=== PATIENT | female | born 1955 | race Caucasian/White ===

== ENCOUNTER 2017-01-12 08:59 | Emergency (ER) | payer BC ==
[2017-01-12 09:45] VITALS: BP 138/61
--- NOTE | 2017-01-12 10:28 | UC ---
Throat Pain/Nasal Domenico HPI - HPI Summary HPI Summary: THREE DAYS OF SORE THROAT, SWOLLEN TONSILS. NO FEVER. NO RASH. NO ABDOMINAL PAIN. - History of Current Complaint Chief Complaint: UCGeneralIllness Stated Complaint: SORE THROAT Time Seen by Provider: 01/12/17 09:33 Hx Obtained From: Patient Onset/Duration: Sudden Onset, Lasting Days, Still Present Severity: Mild Cough: Nonproductive Associated Signs & Symptoms: Positive: Hoarseness - Epiglottits Risk Factors Epiglottis Risk Factors: Negative - Allergies/Home Medications Allergies/Adverse Reactions: Allergies Allergy/AdvReac Type Severity Reaction Status Date / Time No Known Allergies Allergy Verified 01/12/17 09:22 Home Medications: Home Medications Escitalopram Oxalate [Lexapro 10 mg] 10 mg PO DAILY 01/12/17 [History Confirmed 01/12/17] PMH/Surg Hx/FS Hx/Imm Hx Previously Healthy: Yes - Surgical History Surgical History: Yes Surgery Procedure, Year, and Place: 2 c-sections - Family History Known Family History: Negative: Respiratory Disease - Social History Occupation: Employed Full-time Lives: With Family Alcohol Use: None Substance Use Type: None Smoking Status (MU): Never Smoked Tobacco Review of Systems Constitutional: Negative Skin: Negative Eyes: Negative ENT: Sore Throat Respiratory: Negative Cardiovascular: Negative Gastrointestinal: Negative Genitourinary: Negative Motor: Negative Neurovascular: Negative Musculoskeletal: Negative Neurological: Negative Psychological: Negative All Other Systems Reviewed And Are Negative: Yes Physical Exam Triage Information Reviewed: Yes Appearance: Well-Appearing, No Pain Distress, Well-Nourished Vital Signs: Initial Vital Signs Temp 97.7 F 01/12/17 09:22 Pulse 60 01/12/17 09:22 Resp 18 01/12/17 09:22 BP 138/61 01/12/17 09:22 Pulse Ox 99 01/12/17 09:22 Vital Signs Reviewed: Yes Eye Exam: Normal ENT: Positive: Pharyngeal erythema, TMs normal, Tonsillar swelling Dental Exam: Normal Neck exam: Normal Neck: Positive: Supple, Nontender, No Lymphadenopathy Respiratory Exam: Normal Respiratory: Positive: Chest non-tender, Lungs clear, Normal breath sounds, No respiratory distress Cardiovascular Exam: Normal Cardiovascular: Positive: RRR, No Murmur, Pulses Normal Abdominal Exam: Normal Musculoskeletal Exam: Normal Neurological Exam: Normal Psychological Exam: Normal Skin Exam: Normal Throat Pain/Nasal Course/Dx - Differential Dx/Diagnosis Differential Diagnosis/HQI/PQRI: Sinusitis, Tonsillitis, URI Provider Diagnoses: TONSILITIS Discharge - Discharge Plan Condition: Stable Disposition: HOME Prescriptions: Benzonatate CAP* [Tessalon 100 MG CAP*] 100 mg PO TID PRN #12 cap PRN Reason: Cough Patient Education Materials: Tonsillitis (ED) Referrals: Evelyn Moore MD [Primary Care Provider] -
== END 2017-01-12 10:29 | disposition home or self-care (01) ==
LOC: UCEAST 08:59
DX: J03.90 Acute tonsillitis, unspecified (principal)
CPT/HCPCS: 36415; 86803; 87651; 99202; G0463

== ENCOUNTER 2017-02-11 08:39 | Day surgery (SDC) | payer BC ==
[~2017-02-11 08:39] MED LIST: Acetaminophen TAB* 325 MG PO PRN; Buffered Lidocaine 0.9% SYRIN* 5 ML/SYR SYRINGE INTRADERM ONE
[2017-02-11] MEDS ORDERED: fentaNYL* 50 MCG/ML 2 ML VIAL (100 MCG VIAL) ONE (09:56)
[2017-02-11] MEDS ORDERED: Midazolam* 1 MG/ML 2 ML VIAL (2 MG) ONE ×2 (09:56→10:33)
[2017-02-11] MEDS ORDERED: acetaZOLAMIDE TAB* 250 MG ONE (10:50)
[2017-02-11] MEDS ORDERED: Cyclopentolate 1% OPTH.SOL* 2 ML BTL ONE (10:50)
[2017-02-11] MEDS ORDERED: Phenylephrine 2.5% OPTH.SOL* 2 ML BTL ONE (10:51)
[2017-02-11] MEDS ORDERED: Lidocaine 1% MPF* 2 ML VIAL ONE (10:51)
[2017-02-11] MEDS ORDERED: Flurbiprofen 0.03% OPTH.SOL* 2.5 ML BTL ONE (10:51)
[2017-02-11] MEDS ORDERED: Neomycin/Polymy/Dex OPTH.SUSP* MAXITROL 0.1% 5 ML ONE (10:51)
[2017-02-11] MEDS ORDERED: Lidocaine 2% EPI 1:200000 MPF* 20 ML VIAL ONE (10:51)
[2017-02-11] MEDS ORDERED: Buffered Lidocaine 0.9% SYRIN* 5 ML/SYR SYRINGE ONE (10:51)
[2017-02-11] MEDS ORDERED: Proparacaine 0.5% OPHTH.SOL* 15 ML BTL ONE (10:51)
[2017-02-11] MEDS ORDERED: Povidone Iodine 5% OPTH* 30 ML BTL ONE (10:51)
[2017-02-11 11:02] VITALS: BP 118/59
--- NOTE | 2017-02-11 11:37 | OP ---
DATE OF OPERATION: 02/11/2017. DATE OF : 1955. SURGEON: Viraj Huang M.D. PREOPERATIVE DIAGNOSIS: Cataract right eye. POSTOPERATIVE DIAGNOSIS: Cataract right eye. OPERATIVE PROCEDURE: Phacoemulsification right eye with IOL and iStent. PROCEDURE: The patient was brought to the operating room after being given 1/2% Alcaine with epinep hrine drops in the preoperative area. The eye was prepped and draped in the usual sterile fashion. Sterile drape and eyelid speculum were placed. Again, topical 1/2% Alcaine with epinephrine was gi sarah. A paracentesis incision was made at the 9 o'clock position with the No.75 blade. Clear cornea incision 2.2 x 2.2-mm was created at the 12 o'clock position starting at the anterior limbus using the 2.2-mm keratome. The anterior chamber was irrigated with 0.4 mL of 1% non-preservative intracam eral lidocaine and filled with DisCoVisc. A capsulorrhexis was completed using the cystotome and marylu rothman Utrata forceps. Hydrodissection was performed with balanced salt solution. The lens nucleus was r emoved with the Phacoemulsification handpiece without incident. Cortex was removed with the irrigat ion-aspiration handpiece. The capsular bag was re-inflated using DisCoVisc and an [id number] implant was inserted with the shooter, followed by an iStent [id number] inserted into the trabecular meshwork at the 3 o'clock position with its shooter. The irrigation-aspiration handpiece was used to remove all residual DisCoVisc. The eye was refilled with balanced salt solution and the wound checked and found to be watertight. Topical Maxitrol drops were given. [id number]/[facility] #: [id number]
== END 2017-02-11 11:10 | disposition home or self-care (01) ==
LOC: OREAST 08:39
PROVIDERS: ATTEND Specialist
DX: H26.9 Unspecified cataract (principal); Z87.891 Personal history of nicotine dependence
CPT/HCPCS: A9270-GY; C1783; J2250; J3010; V2632

== ENCOUNTER 2017-02-18 09:32 | Day surgery (SDC) | payer BC ==
[~2017-02-18 09:32] MED LIST changes: +Buffered Lidocaine 0.9% SYRIN* 5 ML/SYR SYRINGE ONE; +Cyclopentolate 1% OPTH.SOL* 2 ML BTL ONE; +Ketorolac 0.5% OPHTH (NF) 0.5 % 5 ML BTL ONE; +Lidocaine 1% MPF* 2 ML VIAL ONE; +Lidocaine 2% EPI 1:200000 MPF* 20 ML VIAL ONE; +Neomycin/Polymy/Dex OPTH.SUSP* MAXITROL 0.1% 5 ML ONE; +Phenylephrine 2.5% OPTH.SOL* 2 ML BTL ONE; +Povidone Iodine 5% OPTH* 30 ML BTL ONE; +Proparacaine 0.5% OPHTH.SOL* 15 ML BTL ONE; +acetaZOLAMIDE TAB* 250 MG ONE
[2017-02-18] MEDS ORDERED: Midazolam* 1 MG/ML 2 ML VIAL (2 MG) ONE ×2 (11:44→11:59)
[2017-02-18] MEDS ORDERED: fentaNYL* 50 MCG/ML 2 ML VIAL (100 MCG VIAL) ONE (11:50)
[2017-02-18 12:30] VITALS: BP 121/60
--- NOTE | 2017-02-18 13:30 | OP ---
DATE OF OPERATION: 02/18/2017. DATE OF : 1955. SURGEON: Viraj Huang M.D. PREOPERATIVE DIAGNOSIS: Cataract left eye. POSTOPERATIVE DIAGNOSIS: Cataract left eye. OPERATIVE PROCEDURE: Phacoemulsification left eye with IOL and iStent. PROCEDURE: The patient was brought to the operating room after being given 1/2% Alcaine with epinep hrine drops in the preoperative area. The eye was prepped and draped in the usual sterile fashion. Sterile drape and eyelid speculum were placed. Again, topical 1/2% Alcaine with epinephrine was gi sarah. A paracentesis incision was made at the 3 o'clock position with the No.75 blade. Clear cornea incision 2.2 x 2.2-mm was created at the 6 o'clock position starting at the anterior limbus using t he 2.2-mm keratome. The anterior chamber was irrigated with 0.4 mL of 1% non-preservative intracame ral lidocaine and filled with DisCoVisc. A capsulorrhexis was completed using the cystotome and the Utrata forceps. Hydrodissection was performed with balanced salt solution. The lens nucleus was re moved with the Phacoemulsification handpiece without incident. Cortex was removed with the irrigati on-aspiration handpiece. The capsular bag was re-inflated using DisCoVisc and an [id number] implant was inserted with the shooter, followed by an iStent [id number] inserted with its shooter into the tra becular meshwork at the 3 o'clock position. The irrigation-aspiration handpiece was used to remove all residual DisCoVisc. The eye was refilled with balanced salt solution and the wound checked and found to be watertight. Topical Maxitrol drops were given. [id number]/[facility] #: [id number]
== END 2017-02-18 12:31 | disposition home or self-care (01) ==
LOC: OREAST 09:32
PROVIDERS: ATTEND Specialist
DX: H25.812 Combined forms of age-related cataract, left eye (principal); H40.1131 Primary open-angle glaucoma, bilateral, mild stage; Z87.891 Personal history of nicotine dependence
CPT/HCPCS: A9270-GY; C1783; J2250; J3010; V2632

== ENCOUNTER 2019-06-09 17:50 | Observation (INO) | payer MEDICARE, BC ==
--- NOTE | 2019-06-09 18:21 | ED ---
HPI Chest Pain - HPI Summary HPI Summary: The patient is a 63 year old female presenting to [facility] emergency department with a chief complaint of left anterior chest pressure this afternoon. She reports she was talking and eating when she had sudden onset chest pressure accompanied by flushed skin and diaphoresis. The pressure lasted for about 20 minutes before subsiding on its own. She denies any shortness of breath, nausea, dizziness, or palpitations. Her aging box hand is in Dr. Rodarte in [facility]. Past medical history significant for atrial fibrillation (Eliquis), anxiety. Nonsmoker, rare alcohol use, no substance use. Medications reviewed. Allergies noted. - History of Current Complaint Chief Complaint: EDDysrhythmPalp Time Seen by Provider: 06/09/19 18:01 Hx Obtained From: Patient Onset/Duration: Resolved Timing: Lasting Minutes - 20 Initial Severity: Moderate Current Severity: None Pain Intensity: 0 Pain Scale Used: 0-10 Numeric Chest Pain Location: Left Anterior Chest Pain Radiates: No Character: Pressure/Squeezing Aggravating Factor(s): Nothing Alleviating Factor(s): Spontaneous Resolution Associated Signs and Symptoms: Positive: Chest Pain, Diaphoresis. Negative: Dizziness, Shortness of Breath, Nausea - Allergy/Home Medications Allergies/Adverse Reactions: Allergies Allergy/AdvReac Type Severity Reaction Status Date / Time No Known Allergies Allergy Verified 02/18/17 10:25 Home Medications: Home Medications Amiodarone TAB* [Cordarone TAB*] 100 mg PO DAILY 06/09/19 [History Confirmed 02/18] Apixaban* [Eliquis*] 5 mg PO BID 06/09/19 [History Confirmed 06/09/19] Atorvastatin* [Lipitor*] 40 mg PO DAILY 06/09/19 [History Confirmed 06/09/19] Escitalopram * [Lexapro 10 mg (NF)] 10 mg PO DAILY 06/09/19 [History Confirmed 06/09/19] LORazepam TAB(*) [Ativan 0.5 MG TAB (*)] 0.5 mg PO Q8H PRN 06/09/19 [History Confirmed 06/09/19] Losartan TAB* [Cozaar TAB*] 50 mg PO DAILY 06/09/19 [History Confirmed 06/09/19] Ranolazine (NF) [Ranexa (NF)] 500 mg PO BID 06/09/19 [History Confirmed 06/09/19 ] PMH/Surg Hx/FS Hx/Imm Hx Endocrine/Hematology History: Reports: Hx Anticoagulant Therapy - Eliquis Denies: Hx Diabetes, Hx Thyroid Disease Cardiovascular History: Reports: Hx Atrial Fibrillation Denies: Hx Hypercholesterolemia, Hx Hypertension Respiratory History: Denies: Hx Asthma, Hx Chronic Obstructive Pulmonary Disease (COPD) GI History: Denies: Hx Ulcer Sensory History: Reports: Hx Cataracts - BILATERAL, Hx Contacts or Glasses - GLASSES Denies: Hx Hearing Aid Opthamlomology History: Reports: Hx Cataracts - BILATERAL, Hx Contacts or Glasses - GLASSES Psychiatric History: Reports: Hx Anxiety - ON MEDICATION FOR - Surgical History Surgical History: Yes Surgery Procedure, Year, and Place: 2 c-sections Hx Anesthesia Reactions: No Infectious Disease History: No Infectious Disease History: Denies: Hx Clostridium Difficile, Hx Hepatitis, Hx Human Immunodeficiency Virus (HIV), Hx of Known/Suspected MRSA, Hx Shingles, Hx Tuberculosis, Hx Known/ Suspected VRE, Hx Known/Suspected VRSA, Traveled Outside the [place] in Last 30 Days - Family History Known Family History: Negative: Respiratory Disease - Social History Alcohol Use: Rare Hx Substance Use: No Substance Use Type: Reports: None Hx Tobacco Use: No Smoking Status (MU): Never Smoked Tobacco Amount Used/How Often: 5 CIGARETTES PER DAY X 10 YEARS Review of Systems Positive: Skin Diaphoresis - flushed skin Positive: Chest Pain - left anterior pressure. Negative: Palpitations Negative: Shortness Of Breath Negative: Nausea Neurological: Other - Negative: dizziness All Other Systems Reviewed And Are Negative: Yes Physical Exam - Summary Physical Exam Summary: VITAL SIGNS: Reviewed. GENERAL: Patient is a well-developed and nourished female who is lying comfortable in the stretcher. Patient is not in any acute respiratory distress. HEAD AND FACE: No signs of trauma. No ecchymosis, hematomas or skull depressions. No sinus tenderness.. EYES: PERRLA, EOMI x 2, No injected conjunctiva, no nystagmus. EARS: Hearing grossly intact. Ear canals and tympanic membranes are within normal limits. MOUTH: Oropharynx within normal limits. NECK: Supple, trachea is midline, no adenopathy, no JVD, no carotid bruit, no c- spine tenderness, neck with full ROM. CHEST: Symmetric, no tenderness at palpation. LUNGS: Clear to auscultation bilaterally. No wheezing or crackles. CVS: Irregular rate and rhythm, S1 and S2 present, no murmurs or gallops appreciated. ABDOMEN: Soft, non-tender. No signs of distention. No rebound, no guarding, and no masses palpated. Bowel sounds are normal. EXTREMITIES: FROM in all major joints, no edema, no cyanosis or clubbing. NEURO: Alert and oriented x 3. No acute neurological deficits. Speech is normal and follows commands. SKIN: Dry and warm. Triage Information Reviewed: Yes Vital Signs On Initial Exam: Initial Vitals Temp Pulse Resp BP Pulse Ox 97.3 F 57 18 145/68 97 06/09/19 17:56 06/09/19 17:56 06/09/19 17:56 06/09/19 17:56 06/09/19 17:56 Vital Signs Reviewed: Yes Procedures - Sedation Patient Received Moderate/Deep Sedation with Procedure: No Diagnostics - Vital Signs Vital Signs Temp Pulse Resp BP Pulse Ox 06/09/19 17:56 97.3 F 57 18 145/68 97 - Laboratory Result Diagrams: 06/09/19 18:13 06/09/19 18:13 Lab Statement: Any lab studies that have been ordered have been reviewed, and results considered in the medical decision making process. - Radiology Chest X-Ray Radiology Interpretation Completed By: ED Physician Summary of Radiographic Findings: No acute pathology. ED physician has reviewed and interpreted this report. Pending official read. - EKG 1809 Cardiac Rate: Bradycardia - 59 bpm EKG Rhythm: Atrial Fibrillation Summary of EKG Findings: An EKG at 1809 reveals atrial fibrillation at 59 bpm. LBBB. Multiple PVCs. No ST elevations. ED physician has reviewed and interpreted this EKG. Re-Evaluation - Re-Evaluation First Eval Re-Evaluation Time: 21:40 Comment: We discussed results and plan for admission. Chest Pain Course/Dx - Course Assessment/Plan: The patient is a 63 year old female presenting to [facility] emergency department with a chief complaint of left anterior chest pressure this afternoon. She reports she was talking and eating when she had sudden onset chest pressure accompanied by flushed skin and diaphoresis. The pressure lasted for about 20 minutes before subsiding on its own. She denies any shortness of breath, nausea, dizziness, or palpitations. Her aging box hand is in Dr. Rodarte in [facility]. Past medical history significant for atrial fibrillation (Eliquis), anxiety. Nonsmoker, rare alcohol use, no substance use. Medications reviewed. Allergies noted. Blood work without any significant abnormality. The first troponin is 0.00. Second troponin 4 hours apart as 0.04. EKG shows atrial fib with a left bundle branch block. Chest x-ray negative for acute pathology. In the ED course, the patient was given Aspirin and Lopressor. Nitroglycerin was not given since the patients pain has resolved. I discussed my physical exam and findings with Dr. Knox who accepted the patient for admission. - Diagnoses Provider Diagnoses: Chest pain, Elevated troponin - Provider Notifications Discussed Care Of Patient With: Katie Knox - hospitalist Time Discussed With Above Provider: 21:40 Instructed by Provider To: Other - I discussed the patients case with Dr. Knox , who accepts the patient for admission. Discharge ED - Sign-Out/Discharge Documenting (check all that apply): Patient Departure - Patient is accepted for admission by Dr. Knox. - Discharge Plan Condition: Stable Disposition: ADMITTED TO [facility] Referrals: Evelyn Moore MD [Primary Care Provider] - 3 Days Additional Instructions: Follow up with your primary care provider in 2-3 days. Return to the emergency department for any new or worsening symptoms. - Billing Disposition and Condition Condition: STABLE Disposition: Admitted to [facility] - Attestation Statements Document Initiated by Abdulkadir: Yes Documenting Scribe: Celsa Sheppard Provider For Whom Abdulkadir is Documenting (Include Credential): Dr. Fritz Puente MD Scribe Attestation: Celsa Nguyen, scribed for Dr. Fritz Puente MD on 06/09/19 at 2200. Scribe Documentation Reviewed: Yes Provider Attestation: The documentation as recorded by the Celsa flaherty accurately reflects the service I personally performed and the decisions made by me, Dr. Fritz Puente MD Status of Scribe Document: Viewed
[2019-06-09 18:26] LABS: ABS Eosinophils 0.1 10^3/ul (0-0.6); ABS Lymphocytes 1.1 10^3/ul (1.0-4.8); ABS Monocytes 0.4 10^3/ul (0-0.8); ABS Neutrophils 3.6 10^3/ul (1.5-7.7); Eosinophil % 1.3 %; Hematocrit 38 % (35-47); Hemoglobin 13.4 g/dL (12.0-16.0); Lymphocyte % 21.6 %; Mean Corpuscular HGB Conc 35 g/dL (31-36); Mean Corpuscular Hemoglobin 32 pg (27-31); Mean Corpuscular Volume 92 fL (80-97); Mean Platelet Volume 8.2 fL (7.4-10.4); Platelet Count 226 10^3/uL (150-450); Red Blood Count 4.16 10^6 /uL (3.70-4.87); Red Cell Distribution Width 13 % (10-15); White Blood Count 5.2 10^3/uL (3.5-10.8)
[2019-06-09 18:29] LABS: Activated Partial Thrombo Time 41.1 seconds (26.0-38.0); INR 1.11 (0.82-1.09)
[2019-06-09 18:44] LABS: Albumin 4.1 g/dL (3.2-5.2); Albumin/Globulin Ratio 1.5 (1-3); BUN/Creatinine Ratio 20.7 (8-20); Calcium 9.4 mg/dL (8.6-10.3); EGFR African American 84.7 (>60); Globulin 2.7 g/dL (2-4); Magnesium 1.8 mg/dL (1.9-2.7); Potassium 3.9 mmol/L (3.5-5.0); Total Bilirubin 0.4 mg/dL (0.2-1.0); Total Protein 6.8 g/dL (6.4-8.9)
[2019-06-09 18:48] LABS: CKMB ng/mL 2.3 ng/mL (0.6-6.3)
[2019-06-09 19:07] LABS: TSH (Thyroid Stimulating Horm) 4.87 mcIU/mL (0.34-5.60)
--- OUTSIDE RECORDS SUMMARY | 2019-06-09 19:19 | XMS REPORT | Continuity of Care Document ---
:1955 External Reference #:[id number] Author Name Marjorie Chapin MSN, ESTIMATOR AND [employer]RAFTER SUPERVISOR [address] [place] [address] Care Team Providers Name Role Phone Evelyn Moore MD - Family Medicine Care Team Information Curb And Gutter Laborer [phone] Problems Active Problems Provider Date Left bundle branch block Marjorie Chapin MSN, [employer] SUPER[employer] Onset: 10/05/2018 Premature beats Marjorie Chapin MSN, [employer] SUPER[employer]OR Onset: 10/05/2018 Paroxysmal atrial fibrillation Marjorie Chapin, MSN, ESTIMATOR AND [employer]RAF[employer] SUPERVISOR Onset: 2018 Mitral valve disorder Favian Rodarte M.D., [facility] Onset: 02/16/2013 Chest pain Favian Rodarte M.D., [facility] Onset: 07/21/2012 Dyspnea Favian Rodarte M.D., [facility] Onset: 07/21/2012 Palpitations Favian Rodarte M.D., [facility] Onset: 07/21/2012 Social History Type Date Description Comments Sex Unknown Tobacco Use Start: Unknown End: Unknown Quit Cigarette Use Pack Years - 10 Smoking Status Reviewed: 06/01/81 Quit ETOH Use Denies alcohol use Allergies, Adverse Reactions, Alerts Description No Known Drug Allergies Medications Active Medications SIG Qnty Indications Ordering Provider Date Clopidogrel Bisulfate 1 by mouth every 14tabs R07.9 Marjorie Chapin 2018 day STEPHY Caldwell, 75mg Tablets EST[employer] SUPERVISOR Atorvastatin Calcium 1 tab by mouth 90tabs R07.9 Marjorie Chapin 02/21/2019 40mg every day STEPHY Caldwell, Tablets ESTIMATOR AND [employer]RAFTER SUPERVISOR Amiodarone HCL 1/2 tab by mouth I48.0 Chapin, Marjorie 02/21/2019 200mg every day STEPHY Caldwell, Tablets ESTIMATOR [employer]RAFTER SUPERVISOR Ranolazine ER take 1 tablet by 30tabs R07.9 Marjorie Chapin 02/21/2019 500mg mouth twice a STEPHY Caldwell, Tablets ER 12HR day ESTIMATOR AND [employer]RAFTER SUPERVISOR Eliquis 1 tab by mouth 60tabs Dari Marjorie 09/13/2018 5mg Tablets twice a day STEPHY Caldwell, EST[employer]ATOR [employer]RAF[employer] SUPERVISOR Lexapro 1 tab by mouth 30tabs F41.9 Dari Marjorie 03/05/2016 10mg Tablets every day STEPHY Caldwell, ESTIMATOR AND [employer]RAFTER SUPERVISOR History Medications Aspirin Low Dose R07.9 Marjorie Chapin MSN, 02/21/2019 - Unknown 81mg Tablets DR HUANG Immunizations Description No Information Available Vital Signs Date Vital Result Comment 02/21/2019 11:13am BP Systolic Sitting Left Arm 144 mmHg BP Diastolic Sitting Left Arm 88 mmHg Heart Rate 52 /min Respiratory Rate 16 /min Height 61 inches 5'1" [place] body weight in kilograms 48 kg O2 Saturation Level with Exercise 96 % 02/21/2019 2:26pm BP Systolic Sitting Left Arm 158 mmHg BP Diastolic Sitting Left Arm 80 mmHg Heart Rate 57 /min Respiratory Rate 20 /min Height 61 inches 5'1" Weight 221.00 lb BMI (Body Mass Index) 41.8 kg/m2 BSA (Body Surface Area) 1.97 m2 [place] body weight in kilograms 48 kg Results Test Acquired Date Facility Test Result H/L Range Note Basic Metabolic 02/21/2019 [facility] Glucose 88 mg/dL Normal 74-106 1 [address] [place] [address] [phone] BUN 16 mg/dL Normal 7-18 Creatinine 0.8 mg/dL Normal 0.6-1.3 Glom Filtration Rate, Estimate >60 mL/min >60 If >60 mL/min >60 2 BUN/Creat 20.0 ratio Sodium 138 mmol/L Normal 136-145 Potassium 4.5 mmol/L Normal 3.5-5.1 Chloride 107 mmol/L Normal 98-107 Carbon Dioxide 28 mmol/L Normal 21-32 Anion Gap 3 mEq/L Low 8-16 Calcium 8.8 mg/dL Normal 8.5-10.1 CBC W/Automated 02/21/2019 [facility] White Blood 5.3 K/uL Normal 3.1-10.[address] [place] [address] [phone] Red Blood Count 3.98 M/uL Normal 3.90-5.40 Hemoglobin 12.5 gm/dL Normal 11.6-15.8 Hematocrit 37.9 % Normal 36.0-46.1 Mean Cell Volume 95.2 fl Normal 80.9-99.0 Mean Corpuscular HGB 31.4 pg Normal 25.9-32.7 Mean Corpuscular HGB Conc 33.0 g/dL Normal 30.8-34.3 Platelet Count 235 K/uL Normal 155-360 Red Cell Distri Width SD 44.1 fl Normal 36-47 Red Cell Distri Width %CV 12.8 % Normal 11.7-14.4 Mean Platelet Volume 10.2 fl Normal 8.9-12.4 Neut% 64.1 % Normal 40.4-72.8 Lymph % 25.4 % Normal 20.0-42.0 Jenkins % 7.8 % Normal 4.3-13.2 Eo% 1.9 % Normal 0.0-6.6 Bas% 0.4 % Normal 0.0-1.1 Immature Grans 0.4 % Normal 0.0-5.0 NRBC % 0.0 /100WBC < 10/ 100 WBC Neut# 3.38 K/uL Normal 1.8-7.0 Lymph # 1.34 K/uL Normal 1.0-4.0 Jenkins # 0.41 K/uL Normal 0.3-0.9 Eos # 0.10 K/uL Normal 0.0-0.5 Baso # 0.02 K/uL Normal 0.0-0.1 Immature Grans Absolute 0.02 K/uL NRBC # 0.00 K/uL 1 R07.9 2 Note: Persistent reduction for 3 months or more in an eGFR <60 mL/min/1.73 m2 defines CKD. Patients with eGFR values >/=60 mL/min/1.73 m2 may also have CKD if evidence of persistent proteinuria is present. The original MDRD equation for estimated GFR is not valid for patients less than 18 years of age. Additional information may be found at www.kdo[facility].org. Procedures Date Code Description Status 02/21/2019 89893 EKG-Tracing And Report Completed Medical Devices Description No Information Available Encounters Type Date Location Provider Dx Diagnosis Office Visit 02/21/2019 Cardiology Office Chapin Marjorie R07.9 Chest pain, 2:00p STEPHY Caldwell, unspecified ESTIMATOR AND DRAFTER SUPERVISOR I48.0 Paroxysmal atrial fibrillation I44.7 Left bundle-branch block, unspecified I49.3 Ventricular premature depolarization R09.89 Oth symptoms and signs involving the circ and resp systems R03.0 Elevated blood-pressure reading, w/o diagnosis of htn Assessments Date Code Description Provider 04/04/2019 R07.9 Chest pain, unspecified Marjorie Chapin MSN, [facility] 04/04/2019 I48.0 Paroxysmal atrial fibrillation Marjorie Chapin MSN, [facility] 04/04/2019 I44.7 Left bundle-branch block, unspecified ChapinMarjorie parra MSN, [facility] 04/04/2019 I49.3 Ventricular premature depolarization Marjorie Chapin MSN, [facility] 04/04/2019 I65.29 Carotid artery stenosis Marjorie Chapin MSN, [facility] 04/04/2019 R03.0 Elevated blood-pressure reading, Marjorie Chapin MSN, without diagnosis of hypert ESTIMATOR AND DRAFTER SUPERVISOR 02/21/2019 R07.9 Chest pain, unspecified ChapinMarjorie parra MSN, [facility] 02/21/2019 I48.0 Paroxysmal atrial fibrillation Marjorie Chapin MSN, [facility] 02/21/2019 I44.7 Left bundle-branch block, unspecified ChapinMarjorie parra MSN, [facility] 02/21/2019 I49.3 Ventricular premature depolarization Marjorie Chapin MSN, [facility] 02/21/2019 R09.89 Other specified symptoms and signs Marjorie Chapin MSN, involving the circulatory ESTIMATOR AND DRAFTER SUPERVISOR 02/21/2019 R03.0 Elevated blood-pressure reading, Marjorie Chapin MSN, without diagnosis of hypert ESTIMATOR AND DRAFTER SUPERVISOR Plan of Treatment No Information Available Functional Status Functional Condition Comment Date Status Glasses Active Independent with all ADL's Active Mental Status Description No Information Available Referrals Description No Information Available
--- OUTSIDE RECORDS SUMMARY | 2019-06-09 19:19 | XMS REPORT | Continuity of Care Document ---
:1955 External Reference #:[id number] Author Name Marjorie Chapin MSN, DATASTAGE CONSULTANT Address [address] [place] [address] Care Team Providers Name Role Phone Evelyn Moore MD - Family Medicine Care Team Information Controller Repairer And Tester [phone] Problems Active Problems Provider Date Left bundle branch block Marjorie Chapin MSN, DATASTAGE CONSULTANT Onset: 10/05/2018 Premature beats Marjorie Chapin MSN, DATASTAGE CONSULTANT Onset: 10/05/2018 Paroxysmal atrial fibrillation Marjorie Chapin, MSN, DATASTAGE CONSULTANT Onset: 2018 Mitral valve disorder Favian Rodarte M.D., [facility] Onset: 02/16/2013 Chest pain Favian Rodarte M.D., [facility] Onset: 07/21/2012 Dyspnea Favian Rodarte M.D., [facility] Onset: 07/21/2012 Palpitations Favian Rodarte M.D., [facility] Onset: 07/21/2012 Social History Type Date Description Comments Sex Unknown Tobacco Use Start: Unknown End: Unknown Quit Cigarette Use Pack Years - 10 Smoking Status Reviewed: 06/01/81 Quit ETOH Use Denies alcohol use Allergies, Adverse Reactions, Alerts Description No Known Drug Allergies Medications Active Medications SIG Qnty Indications Ordering Provider Date Losartan Potassium 1 by mouth every 90tabs I10 Marjorie Chapin 06/03/2019 50mg day Javi, MSN, Tablets DATASTAGE CONSULTANT Atorvastatin Calcium 1 tab by mouth 90tabs R07.9 Marjorie Chapin 02/21/2019 40mg every day STEPHY Caldwell, Tablets DATASTAGE CONSULTANT Amiodarone HCL 1/2 tab by mouth I48.0 Chapin, Marjorie 02/21/2019 200mg every day STEPHY Caldwell, Tablets DATASTAGE CONSULTANT Ranolazine ER take 1 tablet by 30tabs R07.9 Chapin, Marjorie 02/21/2019 500mg mouth twice a STEPHY Caldwell, Tablets ER 12HR day DATASTAGE CONSULTANT Eliquis 1 tab by mouth 60tabs Chapin, Marjorie 09/13/2018 5mg Tablets twice a day STEPHY Caldwell, DATASTAGE CONSULTANT Lexapro 1 tab by mouth 30tabs F41.9 Chapin, Marjorie 03/05/2016 10mg Tablets every day STEPHY Caldwell, DATASTAGE CONSULTANT History Medications Aspirin Low Dose R07.9 Chapin, Marjorie 02/21/2019 - 81mg STEPHY Caldwell, DATASTAGE CONSULTANT Unknown Tablets DR Clopidogrel 1 by mouth 14tabs R07.9 Chapin, Marjorie 02/21/2019 - Bisulfate every day STEPHY Caldwell, DATASTAGE CONSULTANT 06/03/2019 75mg Tablets Immunizations Description No Information Available Vital Signs Date Vital Result Comment 06/03/2019 11:22am BP Systolic Sitting Left Arm 144 mmHg BP Diastolic Sitting Left Arm 88 mmHg Heart Rate 52 /min Respiratory Rate 16 /min O2 % BldC Oximetry 96 % 02/21/2019 2:26pm BP Systolic Sitting Left Arm 158 mmHg BP Diastolic Sitting Left Arm 80 mmHg Heart Rate 57 /min Respiratory Rate 20 /min Height 61 inches 5'1" Weight 221.00 lb BMI (Body Mass Index) 41.8 kg/m2 BSA (Body Surface Area) 1.97 m2 [place] body weight in kilograms 48 kg Results Test Acquired Date Facility Test Result H/L Range Note Basic Metabolic 02/21/2019 [facility] Glucose 88 mg/dL Normal 74-106 1 [address] [place] [address] [phone] BUN 16 mg/dL Normal 7-18 Creatinine 0.8 mg/dL Normal 0.6-1.3 Glom Filtration Rate, Estimate >60 mL/min >60 If >60 mL/min >60 2 BUN/Creat 20.0 ratio Sodium 138 mmol/L Normal 136-145 Potassium 4.5 mmol/L Normal 3.5-5.1 Chloride 107 mmol/L Normal 98-107 Carbon Dioxide 28 mmol/L Normal 21-32 Anion Gap 3 mEq/L Low 8-16 Calcium 8.8 mg/dL Normal 8.5-10.1 CBC W/Automated 02/21/2019 [facility] White Blood 5.3 K/uL Normal 3.1-10.[address] [place] [address] [phone] Red Blood Count 3.98 M/uL Normal 3.90-5.40 [...] 40.4-72.8 Lymph % 25.4 % Normal 20.0-42.0 [place] % 7.8 % Normal 4.3-13.2 Eo% 1.9 % Normal 0.0-6.6 Bas% 0.4 % Normal 0.0-1.1 Immature Grans 0.4 % Normal 0.0-5.0 NRBC % 0.0 /100WBC < 10/ 100 WBC Neut# 3.38 K/uL Normal 1.8-7.0 Lymph # 1.34 K/uL Normal 1.0-4.0 [place] # 0.41 K/uL Normal 0.3-0.9 Eos # [...] [email or web address]. Procedures Date Code Description Status 02/21/2019 21524 EKG-Tracing And Report Completed Medical Devices Description No Information Available Encounters Type Date Location Provider Dx Diagnosis Office Visit 06/03/2019 Cardiology Office Dari Marjorie R07.9 Chest pain, 11:20a STEPHY Caldwell, unspecified DATASTAGE CONSULTANT I48.0 Paroxysmal atrial fibrillation I65.29 Occlusion and stenosis of unspecified carotid artery I10 Essential (primary) hypertension I44.7 Left bundle-branch block, unspecified I49.3 Ventricular premature depolarization Office Visit 02/21/2019 2:00p Cardiology ChapinMarjorie parra R07.9 Chest pain, Office STEPHY Caldwell, unspecified [facility] I48.0 Paroxysmal atrial fibrillation I44.7 Left bundle-branch block, unspecified I49.3 Ventricular premature depolarization R09.89 Oth symptoms and signs involving the circ and resp systems R03.0 Elevated blood-pressure reading, w/o diagnosis of htn Assessments Date Code Description Provider 06/03/2019 R07.9 Chest pain, unspecified ChapinMarjorie parra MSN, [facility] 06/03/2019 I48.0 Paroxysmal atrial fibrillation Marjorie Chapin MSN, [facility] 06/03/2019 I65.29 Carotid artery stenosis Marjorie Chapin MSN, [facility] 06/03/2019 I10 Essential (primary) hypertension Marjorie Chapin MSN, [facility] 06/03/2019 I44.7 Left bundle-branch block, unspecified Marjorie Chapin MSN, [facility] 06/03/2019 I49.3 Ventricular premature depolarization Marjorie Chapin MSN, [facility] 04/04/2019 R07.9 Chest pain, unspecified ChapinMarjorie parra MSN, [facility] 04/04/2019 I48.0 Paroxysmal atrial fibrillation Marjorie Chapin MSN, [facility] 04/04/2019 I44.7 Left bundle-branch block, unspecified Marjorie Chapin MSN, [facility] 04/04/2019 I49.3 Ventricular premature depolarization Marjorie Chapin MSN, DATASTAGE CONSULTANT 04/04/2019 I65.29 Carotid artery stenosis Marjorie Chapin MSN, DATASTAGE CONSULTANT 04/04/2019 R03.0 Elevated blood-pressure reading, Marjorie Chapin MSN, without diagnosis of hypert DATASTAGE CONSULTANT 02/21/2019 R07.9 Chest pain, unspecified Marjorie Chapin MSN, DATASTAGE CONSULTANT 02/21/2019 I48.0 Paroxysmal atrial fibrillation Marjorie Chapin MSN, DATASTAGE CONSULTANT 02/21/2019 I44.7 Left bundle-branch block, unspecified Marjorie Chapin MSN, DATASTAGE CONSULTANT 02/21/2019 I49.3 Ventricular premature depolarization Marjorie Chapin MSN, [facility] 02/21/2019 R09.89 Other specified symptoms and signs Marjorie Chapin MSN, involving the circulatory DATASTAGE CONSULTANT 02/21/2019 R03.0 Elevated blood-pressure reading, Marjorie Chapin MSN, without diagnosis of hypert DATASTAGE CONSULTANT Plan of Treatment Future Appointment(s):12/07/2019 9:40 am - Marjorie Chapin MSN, DATASTAGE CONSULTANT at Cardiology [facility]06/03/2019 - Marjorie Chapin MSN, FNPR07.9 Chest pain, unspecifiedComments:No need for Plavix. I will keep the Ranexa going for now as this may be playing a role in maintaining SR.I48.0 Paroxysmal atrial fibrillationComments:Monitor. No changes.I65.29 Carotid artery stenosisComments :She will remain on the statin.I10 Essential (primary) hypertensionNew Medication:Losartan Potassium 50 mg - 1 by mouth every dayComments:I will start her on the losartan. She will monitor her BP at home. She as a visit coming up with Dr. Moore in follow up.I44.7 Left bundle-branch block, unspecifiedComments:Monitor.I49.3 Ventricular premature depolarizationComments: No changes.AllFollow up:Follow up visit in six months. Call in one week with BP readings. Functional Status Functional Condition Comment Date Status Glasses Active Independent with all ADL's Active Mental Status Description No Information Available Referrals Description No Information Available
[2019-06-09] MEDS ORDERED: Magnesium Oxide TAB* 400 MG PO ONE (19:20)
[2019-06-09 20:47] LABS: Urine Appearance Clear; Urine Bilirubin Negative (Negative); Urine Blood 1+ (Negative); Urine Color Straw; Urine Glucose Negative (Negative); Urine Ketones Negative (Negative); Urine Nitrite Negative (Negative); Urine Protein Negative (Negative); Urine Specific Gravity 1.008 (1.010-1.030); Urine Urobilinogen Negative (Negative)
[2019-06-09 20:57] LABS: Urine Bacteria Absent (Absent); Urine Red Blood Cell Trace(0-2/hpf) (Absent); Urine Squamous Epithelial Cell Present (Absent); Urine White Blood Cell Trace(0-5/hpf) (Absent)
[2019-06-09 21:32] LABS: Troponin I 0.04 ng/mL (<0.03)
[2019-06-09] MEDS ORDERED: Aspirin 81 mg CHEW TAB* 81 MG TAB.CHEW PO ONE (21:33)
[2019-06-09] MEDS ORDERED: Metoprolol Tartrate TAB* 25 MG PO ONE (21:33)
[2019-06-09] MEDS ORDERED: LORazepam TAB(*) 0.5 MG PO PRN (22:31)
[2019-06-09] MEDS ORDERED: Enoxaparin(*) 40 MG/0.4 ML SYR SUBCUT SCH (23:00)
--- NOTE | 2019-06-09 23:35 | HP ---
History of Present Illness - History of Present Illness Reason for Visit: Chest heaviness History of Present Illness: Karli Jerry is a 63 y/o female with history of pAF, obesity, presented with acute onset of chest heaviness since 4pm. She was sitting in the restaurant and chatting with her girls when this happened. She described as heaviness in central chest, no radiation, intermittent for 2 hours, no SOB, no palpitation, no dizziness. She thought she had a Afib and went to clinic in [facility] where a stat EKG doesn't show Afib. She was told to come ED. By the time she arrived here, she stated the heaviness had been gone, she felt herself back to normal. She had history of pAf in August 2018 where she was hospitalized in [facility], had stress test and heart cath done, patient stated that her heart cath was normal. She is following up with Dr. Justin Monreal, she is on Eliquis, amiodarone, metoprolol and recently was put on losartan. Her baseline she had no exertional dypnea, able to walk a few blocks but feeling tired on climbing stairs. In ED, loading dose of aspirin was given. - Past Medical History Past Medical History: 1. paroxysmal Afib 2. Morbid obesity 3. LBBB $. Cath in the fall on 2018 at [facility] in [place]-negative as per pt. - Past Surgical History Past Surgical History: None - Past Family History Past Family History: Mother due to breast cancer, father passed due to bone cancer. Brother from heart attack at age of 59. Sister had a stroke. No other significant family history of heart disease, lung disease, cancer. - Past Social History Past Social History: Ex-smoker, a few cigarettes for 8 years, stopped 40 years ago. No Etoh use, no drug use. Works partime in a [employer]. 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 Medications: Home Medications Medication Instructions Recorded Confirmed Type Amiodarone TAB* [Cordarone TAB*] 100 mg PO DAILY 06/09/19 06/09/19 History Apixaban* [Eliquis*] 5 mg PO BID 06/09/19 06/09/19 History Atorvastatin* [Lipitor*] 40 mg PO DAILY 06/09/19 06/09/19 History Escitalopram * [Lexapro 10 mg (NF)] 10 mg PO DAILY 06/09/19 06/09/19 History LORazepam TAB(*) [Ativan 0.5 MG 0.5 mg PO Q8H PRN 06/09/19 06/09/19 History TAB (*)] Losartan TAB* [Cozaar TAB*] 50 mg PO DAILY 06/09/19 06/09/19 History Ranolazine (NF) [Ranexa (NF)] 500 mg PO BID 06/09/19 06/09/19 History Allergies/Adverse Reactions: Allergies Allergy/AdvReac Type Severity Reaction Status Date / Time No Known Allergies Allergy Verified 02/18/17 10:25 Review of Systems - Review of Systems Constitutional: Negative: Fever, Chills, Sweats, Weakness, Malaise, Other Eyes: Negative: Pain, Vision Change, Conjunctivae Inflammation, Eyelid Inflammation, Redness, Other ENT: Negative: Ear Pain, Ear Discharge, Nose Pain, Nose Discharge, Nose Congestion, Mouth Pain, Mouth Swelling, Throat Pain, Throat Swelling, Other Respiratory: Negative: Cough, Dry, Shortness of Breath, Hemoptysis, SOB with Excertion, Pleuritic Pain, Sputum, Wheezing Cardiovascular: Positive: Other Gastrointestinal: Negative: Nausea, Vomiting, Abdominal Pain, Diarrhea, Constipation, Melena, Hematochezia, Other Genitourinary: Negative: Dysuria, Frequency, Incontinence, Hematuria, Retention , Other Musculoskeletal: Negative: Neck Pain, Shoulder Pain, Arm Pain, Back Pain, Hand Pain, Leg Pain, Foot Pain, Other Skin: Negative: Rash, Lesions, Otis, Bruising, Other Neurological: Negative: Weakness, Numbness, Incoordination, Change in Speech, Confusion, Seizures, Other Exam Vital Signs: Vital Signs (72 hours) 06/09/19 06/09/19 06/09/19 17:56 17:58 18:00 Temperature 97.3 F Pulse Rate 58 57 60 Respiratory 18 17 Rate Blood Pressure 145/68 145/68 (mmHg) O2 Sat by Pulse 96 96 96 Oximetry 06/09/19 06/09/19 06/09/19 18:28 18:58 19:00 Temperature Pulse Rate 56 58 55 Respiratory 17 18 22 Rate Blood Pressure 125/64 106/71 (mmHg) O2 Sat by Pulse 93 94 94 Oximetry 06/09/19 06/09/19 06/09/19 19:28 19:58 20:00 Temperature Pulse Rate 51 54 54 Respiratory 17 22 20 Rate Blood Pressure 124/76 128/60 (mmHg) O2 Sat by Pulse 95 94 94 Oximetry 06/09/19 06/09/19 06/09/19 20:58 21:00 21:29 Temperature Pulse Rate 52 52 53 Respiratory 26 17 22 Rate Blood Pressure 112/51 109/37 (mmHg) O2 Sat by Pulse 93 95 94 Oximetry 06/09/19 06/09/19 06/09/19 21:42 21:58 22:00 Temperature Pulse Rate 53 52 50 Respiratory 16 16 16 Rate Blood Pressure 127/74 114/59 (mmHg) O2 Sat by Pulse 96 96 97 Oximetry 06/09/19 06/09/19 06/09/19 22:28 22:44 23:13 Temperature 97.4 F Pulse Rate 51 51 54 Respiratory 16 15 15 Rate Blood Pressure 131/29 131/29 (mmHg) O2 Sat by Pulse 94 96 96 Oximetry Result Diagrams: 06/09/19 18:13 06/09/19 18:13 Additional Lab and Data: Trop first one 0.0 trop second one 0.03 Diagnostic Imaging: CXR: no cardiomegaly EKG Data: EKG; sinus bradycardia with HR 59, LBBB, occ PVC; V1-V3 st changes likely due to LVH Assessment/Plan - Assessment/Plan Assessment: ni Jerry is a 63 y/o female with history of pAF, obesity, presented with acute onset of chest heaviness lasting for 2 hours, found to have uptrending trop with no EKG changes. ACS needs to be ruled out with multiple cardiovascular risk factors including obesity, ex smoker. We will admit her with telemetry monitoring overnight, and continue to trend her troponin. She will benefit from a stress test for further risk stratification. Plan: 1. Chest heaviness r/o ACS - telemetry monitoring - trend trop and ekg until trop peaks - stress test tomorrow - echo tomorrow in view of LBBB - obtain her cath record from her supervisor grinding Dr. Rodarte - if trop still trending up , cont anticoag - HbA1c and lipid panel tomorrow 2. pAF - continue amiodarone, Eliquis 3. Anxiety - continue old meds 4. DVT prophylaxis - Eliquis Attestation Documenting Resident: Krystin Leiva Supervising Physician: Katie Knox Attending/Supervising Physician Comment: Pt was examined by myself and case discussed with Dr. Leiva. 63 yo F with h/o LBBB and PAF presented after an episode of CP. Trop 0.04. Pt is CP free. Will OBV for stress test. Attestation: This service has been performed in part by a resident under the direction of a teaching physician.I, Katie Knox, performed the service, or was physically present during the critical, or sahu portions of the service, furnished by the resident. I participated in the management of the patient.
[2019-06-10 06:53] LABS: HDL Cholesterol 53.3 mg/dL
[2019-06-10] MEDS ORDERED: Escitalopram * 10 MG TAB PO SCH (09:00)
[2019-06-10] MEDS ORDERED: Atorvastatin* 40 MG TAB PO SCH (09:00)
[2019-06-10] MEDS ORDERED: Amiodarone TAB* 200 MG PO SCH (09:00)
[2019-06-10] MEDS ORDERED: Apixaban* 5 MG TAB PO SCH (09:00)
[2019-06-10] MEDS ORDERED: Losartan TAB* 25 MG PO SCH (09:00)
[2019-06-10] MEDS ORDERED: Perflutren Lipid Microsphere* 3 ML VIAL ONE (10:24)
--- NOTE | 2019-06-10 13:06 | ECHO ---
*[facility]* [place] [address] Fax #: [phone] Transthoracic Echocardiogram Patient: Karli Jerry : 1955 Study Date: 06/10/2019 Age: 63 Gender: F HR: 50 bpm Height: 61 in /154.9 cm BSA: 2.15 m^2 Weight: 222.5 lb /101.2 kg BMI: 42.1 kg/m^2 *Conservation Educator: * Jillian Balderas RDCS RN *Referring Physician: * Krystin Leiva *Reading Physician: * Danilo Mckeon MD Indications: Abnormal EKG. History: Paroxysmal Atrial fibrillation. Obstructive sleep apnea using CPAP. Risk factors: Current tobacco use. Hypertension. Obese. Dyslipidemia. Conclusions Summary: - Left ventricle: The cavity size is normal. Wall thickness is mildly increased. Systolic function is normal. The estimated ejection fraction is 55-60%. Wall motion is normal; there are no regional wall motion abnormalities. - Right ventricle: The cavity size is normal. Systolic function is normal. - Left atrium: The atrium is mildly dilated. - Mitral valve: There is mild to moderate regurgitation. - Pulmonary arteries: Systolic pressure is mildly increased. Recommendations: None prior for comparison at time of interpretation. Study data: Transthoracic echocardiogram. Procedure: Transthoracic echocardiography was performed. Image quality was fair. The study was technically limited due to body habitus and smoking history. Intravenous Definity 3 ml was administered IV to enhance imaging. Complete 2D, spectral Doppler, and color flow Doppler. Location: Bedside. Patient status: Inpatient. Patient room number: 443-02. Rhythm: Bradycardia. PVCs. Findings Left ventricle: The cavity size is normal. Wall thickness is mildly increased. Systolic function is normal. The estimated ejection fraction is 55-60%. Wall motion is normal; there are no regional wall motion abnormalities. There is no consistent Doppler evidence of clinically significant diastolic dysfunction. Right ventricle: The cavity size is normal. Systolic function is normal. Left atrium: The atrium is mildly dilated. Right atrium: The atrium is normal in size. Mitral valve: The leaflets are mildly thickened. There is no evidence of stenosis. There is mild to moderate regurgitation. Aortic valve: The valve is trileaflet. The leaflets are mildly thickened. There is no evidence of stenosis. There is trace regurgitation. Tricuspid valve: The valve is structurally normal. There is no evidence of stenosis. There is mild regurgitation. Pulmonic valve: Not well visualized. There is no evidence of stenosis. There is mild regurgitation. Aorta: Aortic root: The aortic root is not dilated. Ascending aorta: The ascending aorta is not dilated. Aortic arch: The aortic arch is not dilated. Pericardium: There is no significant pericardial effusion. Pulmonary arteries: Not well visualized. Systolic pressure is mildly increased. Systemic veins: Inferior vena cava: Not well visualized. Measurements Left ventricle Value Ref Aortic valve Value Ref JENNIFER, LAX 5.1 cm 3.8 - Peak v, S 1.9 m/sec ----- 5.2 VTI, S 39.6 cm ----- ESD, LAX (H) 3.6 cm 2.2 - Mean grad, S 7.4 mm Hg ----- 3.5 Peak grad, S 14.4 mm Hg ----- FS, LAX 28 % 27 - 45 LVOT/AV, VTI ratio 0.92 ----- PW, ED (H) 1.0 cm 0.6 - 0.9 Mitral valve Value Ref IVS/PW, ED 1.1 -------- Peak E 0.98 m/sec ----- E', lat laurita, TDI 11.0 cm/sec >=10.0 Peak A 1.01 m/sec -- --- E/e', lat laurita, TDI 9 -------- Decel time 287 ms ----- E', med laurita, TDI 7.0 cm/sec >=7.0 Peak grad, D 3.9 mm Hg -- --- E/e', med laurita, TDI 14 -------- Peak E/A ratio 0.97 ----- E', avg, TDI 9.0 cm/sec -------- MR peak v 5.22 m/sec ----- E/e', avg, TDI 11 <=14 ERO, PISA 0.23 cm^2 -- --- LVOT Value Ref Pulmonic valve Value Ref Peak ayaz, S 1.61 m/sec -------- Peak v, S 1.1 m/sec ----- VTI, S 36.4 cm -------- Peak grad, S 4.6 mm Hg ----- Peak grad, S 10 mm Hg -------- Mean grad, S 6 mm Hg -------- Tricuspid valve Value Ref TR peak v (H) 3.05 m/sec <=2.8 Ventricular septum Value Ref Peak RV-RA grad, S 37 mm Hg ----- IVS, ED (H) 1.1 cm 0.6 - 0.9 Aortic root Value Ref Root diam 2.6 cm <4.2 Right ventricle Value Ref JENNIFER minor ax, A4C 3.0 cm 1.9 - Ascending aorta Value Ref mid 3.5 AAo AP diam, S 2.8 cm ----- Pressure, S 45 mm Hg -------- AAo AP diam/bsa, S 1.3 cm/m^2 ----- Left atrium Value Ref Aortic arch Value Ref LA ID 3.6 cm -------- Arch diam 2.5 cm ----- SI dim ES, LAX 3.6 cm -------- ML dim, A4C 3.7 cm -------- Decending aorta Value Ref SI dim, A4C 5.4 cm -------- Toshia peak ayaz 1 m/sec ----- Vol, ES, 2-p 66 ml -------- Vol/bsa, ES, 2-p 31 ml/m^2 16 - 34 Pulmonary artery Value Ref Pressure, S 40.4 mm Hg ----- Right atrium Value Ref ML dim, ES, A4C 4.1 cm 2.6 - 4.4 SI dim, ES, A4C 5.1 cm 3.4 - 5.3 Estimated RAP 8 mm Hg -------- Legend: (L) and (H) mateus values outside specified reference range. Prepared and electronically signed by Danilo Mckeon MD 06/10/2019 13:06
[2019-06-10] MEDS ORDERED: Regadenoson* 0.4 MG/5 ML SYRINGE ONE (13:47)
[2019-06-10] MEDS ORDERED: Aminophylline IV* 25 MG/ML 10 ML VIAL ONE (13:47)
[2019-06-10 18:27] VITALS: BP 132/60
--- NOTE | 2019-06-10 22:31 | DS ---
AMENDED REPORT NOW INCLUDES DESIGNATED COSIGNER CC: Dr. Moore; Marjorie Chapin NP * DISCHARGE SUMMARY: DATE OF ADMISSION: 06/09/19 DATE OF DISCHARGE: 06/10/19 PROVIDER: Cecy Prince NP. ATTENDING PHYSICIAN: Dr. Garcia.* (DICTATED BY CECY PRINCE NP) PRIMARY CARE PHYSICIAN: Dr. Moore. GEAR CODING MACHINE OPERATOR: Marjorie Chapin NP. PRIMARY DIAGNOSIS: Chest heaviness. SECONDARY DIAGNOSES: 1. Paroxysmal atrial fibrillation. 2. Morbid obesity. 3. Left bundle branch block. 4. Hypertension. PROCEDURES: None. STUDIES: Transthoracic echocardiogram showed ejection fraction of 55% to 60% with no regional wall motion abnormality, left atrium mildly dilated, mitral valve has trace regurgitation as this for tricuspid valve and pulmonic valve. Chest x-ray showed no evidence for acute intrathoracic disease though had a stigmata of probable COPD. Nuclear cardiac stress test showed no definite fixed or reversible perfusion defects and was classified as a low risk. PERTINENT LAB DATA: Triglyceride 76, cholesterol 122, LDL cholesterol 54, HDL cholesterol 53.3, TSH 4.87. HISTORY OF PRESENT ILLNESS/HOSPITAL COURSE: This is a 63-year-old female with past medical history significant for paroxysmal AFib and obesity, who presented to the emergency room on 06/09/19 for chest heaviness. She had been sitting in a restaurant, talking with friends and suddenly described a chest heaviness with no radiating pain and it stayed for 2 hours with no additional dizziness, palpitations, or shortness of breath. She stated that she had panicked thinking that she was having another episode of AFib as the first time it presented it felt the similar way. [facility] show any [facility]ib and was told to come to the emergency room, however, by the time she arrived, her heaviness had dissipated and was having no other symptoms. In the emergency room, labs were drawn, EKG taken, chest x-ray performed, had been given metoprolol, magnesium, and aspirin; however, troponins at that time were 0.0. Subsequent trop did bump to 0.04, which in several hours after that went back down to 0.0. The patient was admitted overnight and kept n.p.o. for nuclear stress test and echocardiogram. She did not have any subsequent episodes of chest pain or heaviness throughout her admission except for when I was speaking to her about discharge, she stated the tight feeling came back in her chest though she also was feeling anxious at the same time, which she deals with on a daily basis at home due to caregiver strain having to take care of her who has Alzheimer's. However, the feeling quickly dissipated when we went through different grounding exercises for anxiety and answered any and all questions from her daughters and her. REVIEW OF SYSTEMS: An 11-point system review was performed which was negative for fever, chills, headaches, chest pain, palpitations, shortness of breath, abdominal pain, nausea, vomiting, issues moving her bowels or bladder. PHYSICAL EXAMINATION: Vital Signs: 96.7 Fahrenheit, 66 pulse, 20 resps, 95% oxygen on room air, 132/60 blood pressure. General: This is a well-developed, obese woman, seen sitting up in the bed, in no acute distress. HEENT: Conjunctivae pink and moist. PERRLA. EOMs intact. Mucous membranes moist. Oropharynx clear. Neck is supple. Cardiac: S1, S2 present. Heart rate regular. No murmurs, gallops, or rubs appreciated. Respiratory: Lung sounds clear throughout bilaterally on room air. Abdomen: Soft, nontender, nondistended with positive bowel sounds x4. Musculoskeletal: Able to move all extremities, 5/5 strength to bilateral upper and lower extremities. No clubbing or cyanosis of the digits. Skin: No rashes or lesions noted. Neurological: Sensation intact to light touch. No focal deficits appreciated. Psych: She is alert and oriented x4 with thought content organized. DISCHARGE PLAN: She is able to go home on a regular diet with no activity restrictions. She is to return to the hospital should she have any chest pain or palpitations, or shortness of breath. I did educate the patient about reproducible chest pain and that it is less likely to be a cardiac pain and how to test and then to see if chest pain is made worse by taking deep breath or pushing on it, as she was curious about how to distinguish between different types of chest pain, however, I did caution her that should there ever be a question that she should come back to the emergency room for evaluation. PLAN FOR EACH CONDITION: 1. Chest heaviness: Any evidence of acute MD was ruled out as the patient had a low risk stratification, insignificant transthoracic echocardiogram, EKG was normal and no significant increase in troponins. I thought that this may be more related to what she was eating at the time versus anxiety. 2. Anxiety: She is to continue her lorazepam and Lexapro. Encouraged her to find other anxiety and stress relief activities. 3. Paroxysmal AFib: She is to continue her amiodarone and Eliquis. 4. Hyperlipidemia: She is to continue her atorvastatin. 5. Hypertension: She is to continue her losartan at home. Her blood pressures remained normotensive throughout her stay here. Her diagnosis of hypertension is new to her. I educated her about seeing an games manager once a year. MEDICATIONS TO CONTINUE UPON DISCHARGE: 1. Lorazepam 0.5 mg p.o. q.8 hours p.r.n. 2. Atorvastatin 40 mg p.o. daily. 3. Amiodarone 100 mg p.o. daily. 4. Apixaban 5 mg p.o. b.i.d. 5. Ranolazine 500 mg p.o. b.i.d. 6. Losartan 50 mg p.o. daily. 7. Escitalopram 10 mg p.o. daily. CONDITION UPON DISCHARGE: Stable. DISPOSITION: To home. TIME SPENT: Time spent on the patient is about 60 minutes with half of that spent [id number]. CECY PRINCE, MACRINA [id number]/[facility] #: [id number] YAYO
== END 2019-06-10 18:10 | disposition home or self-care (01) ==
LOC: ED 17:50 → INTOOBSV 22:34 → MEDTELE 22:34
PROVIDERS: ADMIT Internal Medicine; ATTEND Internal Medicine
DX: R07.89 Other chest pain (principal); I48.0 Paroxysmal atrial fibrillation; I44.7 Left bundle-branch block, unspecified; I10 Essential (primary) hypertension; E66.01 Morbid (severe) obesity due to excess calories; F41.9 Anxiety disorder, unspecified; Z79.899 Other long term (current) drug therapy; Z79.01 Long term (current) use of anticoagulants; Z95.5 Presence of coronary angioplasty implant and graft; Z87.891 Personal history of nicotine dependence
CPT/HCPCS: 36415; 71046; 78452; 80053; 80061; 81003; 81015; 82550; 82553; 83036; 83605; 83735; 83880; 84443; 84484; 85025; 85610; 85730; 87086; 93005; 93017; 93306; 99284; A9270-GY; A9502; C8929; G0378; J0280; J2785